=== PATIENT | female | born 1960 | race Caucasian/White ===

== ENCOUNTER 2022-08-06 12:02 | Outpatient (CLI) | payer OTHER, SELFPAY ==
[2022-08-06 12:41] LABS: Iron 65 ug/dL (37-170)
[2022-08-06 12:51] LABS: Percent Iron Saturation 16 % (20-50)
[2022-08-06 13:14] LABS: Hepatitis B Surface Antigen Negative (Negative)
[2022-08-06 13:19] LABS: HAV RESULT Negative (Negative); Hepatitis B Core IgM Result Negative (Negative)
[2022-08-06 13:31] LABS: Hepatitis C Virus Antibody Negative (Negative)
[2022-08-09 13:53] LABS: Ceruloplasmin 28 mg/dL (18-53)
[2022-08-12 21:25] LABS: Mitochondrial (M2) Ab (IgG) 31.2 U (<=20.0)
== END 2022-08-06 12:03 | disposition home or self-care (01) ==
LOC: ANHLAB 12:04
PROVIDERS: PCP Pediatrics; Visit Provider Internal Medicine Gastroenterology
DX: R74.8 Abnormal levels of other serum enzymes (principal); R10.11 Right upper quadrant pain
CPT/HCPCS: 36415; 80074; 82104; 82390; 82728; 83520; 83540; 83550; 86038

== ENCOUNTER 2022-08-14 14:13 | Outpatient (CLI) | payer OTHER, SELFPAY ==
--- NOTE | 2022-08-14 15:03 | ECG_ITS ---
Measurements Intervals [place] Rate: 96 P: 47 MA: 164 QRS: 53 QRSD: 90 T: 48 QT: 344 QTc: 436 Interpretive Statements SINUS RHYTHM BASELINE ARTIFACT- I, II, III, AVR, AVL, AVF NORMAL ECG NO PREVIOUS ECG AVAILABLE FOR COMPARISON Electronically Signed On 08-14-2022 15:56:29 CDT by Aleksandr Nance D.O.
[2022-08-14 15:59] LABS: Alanine Aminotransferase 32 U/L (6-35); Albumin Level 4.7 g/dL (3.5-5.1); Alkaline Phosphatase 91 U/L (38-126); Amylase 64 U/L (30-110); Aspartate Amino Transferase 41 U/L (14-36); Bilirubin,Total 0.4 mg/dL (0.2-1.3); Lipase 115 U/L (23-300)
[2022-08-14 16:01] LABS: Anion Gap 8 mmol/L (8-16); Blood Urea Nitrogen 16 mg/dL (7-17); Calcium 9.2 mg/dL (8.4-10.2); Carbon Dioxide 24 mmol/L (22-30); Chloride 105 mmol/L (98-107); Estimated Glomerular Filt Rate > 60; Glucose 173 mg/dL (65-110); Potassium 3.8 mmol/L (3.4-5.0); Sodium 137 mmol/L (137-145)
== END 2022-08-14 14:14 | disposition home or self-care (01) ==
PROVIDERS: Anesthesiology; PCP Pediatrics; Visit Provider Surgery
DX: K80.20 Calculus of gallbladder without cholecystitis without obstruction (principal); E11.69 Type 2 diabetes mellitus with other specified complication; E66.9 Obesity, unspecified; Z01.818 Encounter for other preprocedural examination
CPT/HCPCS: 36415; 80048; 80076; 82150; 83690; 86850; 86900; 86901; 93005

== ENCOUNTER 2022-08-17 02:27 | Day surgery (SDC) | payer OTHER, SELFPAY ==
[2022-08-13 09:45] VITALS: BMI 33.5
--- NOTE | 2022-08-13 09:51 | PC.NURSE ---
Report to the Outpatient Waiting Room, entrance under the green pavilion located off [facility], at time 11:30 on date 08/17/22. Planned Procedure Time: 1:30. Time changes happen often and if your time is changed the preop area will call you the afternoon before. - You and your visitor will be asked to self-screen and do not enter if you have any COVID symptoms. - Only one visitor is requested with a max of two and NO children visitors are allowed at this time. - The patient visitor may be requested to leave or wait in car when not with patient due to distancing restrictions. - A mask is optional within the hospital at this time. Patients may have clear liquids (water, carbonated beverages, clear teas, apple juice) until 3 hours prior to surgery with a maximum of 20 ounces. - No food from midnight until time of surgery Take the following medications with a SIP of water the morning of surgery: METOPROLOL, 1/2 INSULIN DOSE (7 OR 8 UNITS) DO NOT STOP ANY OF YOUR OTHER PRESCRIPTION MEDICATIONS PRIOR TO SURGERY?EXCEPT THE FOLLOWING Medications to discontinue per physician : VITAMINS/SUPPLEMENTS Date to take last dose: 08/13/22 Please no make-up, nail kinyarwanda, hairspray, perfume, deodorant, or body powder the day of surgery. No jewelry (including any body piercings) or valuables the day of surgery, leave them at home. Please take a shower or bath the night before, or the morning of, surgery with an antibacterial soap (HIBICLENS). Wear comfortable, loose fitting clothing. - Jewelry must be removed prior to entering the operating room. Rings and piercings that are not removed may be cut off. - The hospital will not accept responsibility for valuables. - Please leave all valuables, including medications, at home the day of surgery. If you are going home after surgery, a licensed stock car driver must drive you home. - NO public transportation without another adult if you receive anesthesia. - We recommend that an adult stay with you for 24 hours following discharge. - We also recommend that you do not drive, make important decision, drink alcoholic beverages, or take any drugs that were not prescribed by your health care provider for at least 24 hours after your discharge time. Follow any additional instructions given to you from your surgeon. If you or anyone in your household have experienced Covid symptoms in the past week, please notify your surgeon or the nurse liaison at the phone number below for possible testing. Telephone instructions given to PT - CINTHIA FALK and asked if any additional questions and then verbalized understanding. Patient advised to call surgeon office or pre surgery nurse liaison [phone] if any additional questions.
[2022-08-17] VITALS (9 sets, daily range): BP systolic 91–107; BP diastolic 60–69; PULSE 67–97; RESP 14–22; TEMP 37.1–37.8; O2SAT 96–100
[2022-08-17 12:19] LABS: Glucose Point of Care 151 mg/dl (65-105)
--- NOTE | 2022-08-17 12:23 | WPDANESEPPF ---
Anes - Initial Pre Proc Eval Procedure: Operation Date: 08/17/22 13:30 Proposed Procedures p Laparoscopic Cholecystectomy, Possible Open - Serge Dowell MD Date/Time: 08/17/22 12:23 Surgeon: Serge Dowell MD Pre Op Diagnosis: symptomatic cholelithiasis Patient Data Age: 61 Gender: F Height: 1.68 m Weight: 94.35 kg Allergies Allergy/AdvReac Type Severity Reaction Status Date / Time Penicillins Allergy Mild Unknown Verified 08/13/22 09:41 Home Medications Medication Instructions Recorded Confirmed Type albuterol sulfate 90 mcg/actuation 1 inh inhalation Q4H PRN 08/06/22 08/13/22 History aerosol inhaler Bronchospasm aspirin 81 mg tablet,delayed 81 mg PO DAILY 08/06/22 08/13/22 History release cholecalciferol (vitamin D3) 25 25 mcg PO DAILY 08/06/22 08/13/22 History mcg (1,000 unit) capsule glucosamine sulfate 2KCl 500 mg 500 mg PO DAILY 08/06/22 08/13/22 History capsule insulin degludec 100 15 unit subcut DAILY 08/06/22 08/13/22 History unit-liraglutide 3.6 mg/mL(3 mL) subcutaneous pen (Xultophy 100/3.6) lisinopril 10 mg tablet 10 mg PO DAILY 08/06/22 08/13/22 History metformin 1,000 mg tablet 1,000 mg PO BID 08/06/22 08/13/22 History metoprolol succinate 25 mg 25 mg PO DAILY 08/06/22 08/13/22 History tablet,extended release 24 hr multivitamin 1 tablet PO DAILY 08/06/22 08/13/22 History omega 4-bsl-smk-fish oil 300 1 cap PO DAILY 08/06/22 08/13/22 History mg-1,000 mg capsule (Fish Oil) rosuvastatin 10 mg tablet 10 mg PO DAILY 08/06/22 08/13/22 History ascorbate calcium (vitamin C) 500 500 mg PO DAILY 08/12/22 08/13/22 History mg tablet biotin 2,500 mcg capsule 2,500 mcg PO DAILY 08/12/22 08/13/22 History calcium carbonate 600 mg calcium 600 mg PO DAILY 08/12/22 08/13/22 History (1,500 mg) tablet (Calcium) chondroitin sulfate A sodium 400 400 mg PO DAILY 08/12/22 08/13/22 History mg capsule dapagliflozin 10 mg tablet 10 mg PO DAILY 08/12/22 08/13/22 History ([facility]) metformin 500 mg tablet 500 mg PO QNOON 08/13/22 08/13/22 History Laboratory Tests 08/17/22 12:17 POC Capillary Glucose 151 mg/dl H mg/dl (65-105) Patient hx anesthesia problems: none Family hx anesthesia problems: none Results Review: All pre-operative results and documents have been reviewed as part of the pre-operative evaluation. [facility] Past Medical History Medical History Asthma Cholelithiasis Colon cancer screening Diabetes Diabetes mellitus type 2 in obese Elevated liver enzymes Fatty liver Hypertension RUQ pain Surgical History Surgical History History of removal of both ovaries Family History Family History Father Pancreatic cancer Social History Social History Smoking status: Never smoker Alcohol intake: current Drinks per week: 2 Alcohol use details: social Substance use: never Substance use type: does not use Living arrangements: with family Spiritual care concerns: No Anes - Eval Final PreProcedure Day of Procedure 08/17/22 12:23 Patient weight: obese Heart: regular rate and rhythm Lungs: clear to auscultation Airway: Mallampati scale class II Neurological: alert and oriented Last oral intake: >/= 8 hours ASA classification: III Emergent: no Anesthetic plan: proceed Anesthesia type and monitoring: general ETT and standard monitoring Results Review: All pre-operative results and documents have been reviewed as part of the pre-operative evaluation. Informed Consent: The patient's anesthetic plan and its attendant risks and benefits were discussed with the patient/family/POA. Questions were solicited and answers provided to the satisfaction of the patient/family/POA.
[2022-08-17] MEDS: LACTATED RINGERS 1,000 ML 30 ML IV CONT ×2 (12:30→14:40)
[2022-08-17] MEDS: KETOROLAC 15 MG/ML VIAL (*BKC) IV PUSH ×2 (12:30→14:28)
[2022-08-17] MEDS: ACETAMINOPHEN 500 MG TABLET 1000 MG PO (12:30)
--- NOTE | 2022-08-17 13:10 | WPDHPUPDATE1 ---
History and Physical Update Update Date/Time: 08/17/22 13:10 History and Physical has been reviewed, including an updated exam of the patient. There are NO changes in the patient's condition. Risks, benefits, and alternatives have been discussed and questions answered. Patient agrees to proceed with procedure.
[2022-08-17] MEDS: ceFAZolin 2 GM/D5W 50 ML 2 GM/50 ML BAG IVPB (13:20)
[2022-08-17] MEDS: LIDO 1%/EPINEPHRINE 1:100,000 20 ML VIAL INFILTRATE (13:52)
[2022-08-17 14:51] LABS: Glucose Point of Care 149 mg/dl (65-105)
--- NOTE | 2022-08-17 15:52 | W.PM.PROC2 ---
Procedure Note - Detailed Date of Procedure 08/17/22 Pre-op Diagnosis symptomatic cholelithiasis Post-op Diagnosis Other ( Chronic cholecystitis secondary to cholelithiasis) Procedure Performed Laparoscopic cholecystectomy Surgeon Serge Dowell MD [employer]penters Supervisor Brendan MCKEON Anesthesia General Indications Patient is a 61-year-old female who presented with complaints of right upper quadrant abdominal pain associated with eating fatty and spicy foods. Abdominal ultrasound showed gallstones. She presents now for an elective laparoscopic cholecystectomy. Findings For distended gallbladder with minimal gallbladder wall thickening. Small gallstones within the gallbladder. Description of Procedure After informed consent was obtained the patient was brought to the operating room where she was placed in supine position and then general endotracheal anesthesia was administered. The abdomen was then prepped and draped in usual sterile fashion. A time-out was then performed correctly identifying the patient as well as the procedure to be performed and verified she was given Ancef for antibiotics. We then entered the abdomen in the left upper quadrant utilizing a 5mm Optiview port. Once inside the abdomen I insufflated at to an adequate pneumoperitoneum of 15mmHg of CO2. Looking around the area the umbilicus there were no adhesions and so I placed a 5mm Optiview port in the periumbilical site. Laparoscopic then switched to the periumbilical site and then looking into the upper portions of the abdomen I placed an epigastric 10mm trocar port and 2 right lateral subcostal 5mm trocar ports. The gallbladder was distended and minimally thickened. It was then held laparoscopic grasper at the dome and elevated over the right half of the liver towards the right shoulder. A 2nd grasper was then used to hold the gallbladder infundibulum. I then stripped down the visceroperitoneum off of the infundibular gallbladder until I identified the cystic duct. The cystic duct was then dissected out circumferentially. The cystic artery was identified was then dissected out circumferentially as well. The posterior wall the gallbladder at the infundibulum dissected free of the liver until the critical view was obtained. I then placed 2 clips proximally cystic duct and 2 clips distally high on infundibular gallbladder. The cystic duct was divided with Endo Junie. In a similar fashion the cystic artery was clipped and divided as well. The gallbladder was then resected off the liver utilized electrocautery without spilling any bile or gallstones. The gallbladder was then placed into an Endo-Catch bag and was then brought out through the epigastric port site. The gallbladder and its contents were sent to pathology for examination. I then irrigated out the right upper quadrant the abdomen and the gallbladder fossa copious sterile saline solution. Hemostasis was good and there was no evidence of bile leak. I then aspirated the fluid from the right upper quadrant the abdomen from the pelvis. I then removed all the trocar ports under direct visualization and all port sites appeared to be hemostatic. I then irrigated out the port sites with sterile saline solution. I then closed the epigastric trocar port fascial defect utilizing a 0 Vicryl suture placed in a figure-eight fashion. The skin edges down the port sites were then approximated utilizing a running subcuticular 4-0 Monocryl suture. The incisions were then cleaned then skin glue was applied. The patient tolerated the procedure well no complications. All sponges, needles, and instrument counts were correct at the end procedure. EBL was _15__cc. The patient was awakened and taken to recovery in stable and satisfactory condition. Implants None Estimated Blood Loss 15 Drains No Packing No Pathology Yes ( gallbladder and contents to pathology) Complications No immediate complications Condition Stabl
== END 2022-08-17 16:35 | disposition home or self-care (01) ==
PROVIDERS: PCP Pediatrics; Visit Provider Surgery
PROC: 0FT44ZZ Resection of Gallbladder, Percutaneous Endoscopic Approach (ICD-10-PCS; CPT 47562; principal; 2022-08-17 13:30)
DX: K80.10 Calculus of gallbladder with chronic cholecystitis without obstruction (principal); E11.9 Type 2 diabetes mellitus without complications; I10 Essential (primary) hypertension; J45.909 Unspecified asthma, uncomplicated; K76.0 Fatty (change of) liver, not elsewhere classified; Z79.51 Long term (current) use of inhaled steroids; Z79.82 Long term (current) use of aspirin; Z79.4 Long term (current) use of insulin; Z79.84 Long term (current) use of oral hypoglycemic drugs; E66.9 Obesity, unspecified; Z68.32 Body mass index [BMI] 32.0-32.9, adult
CPT/HCPCS: 47562; 36415; 80048; 80076; 82150; 82948; 83690; 86850; 86900; 86901; 88304; 93005; A9270; C1713; J0690; J1100; J1885; J2250; J2704; J2710; J3010; J7030; J7120